=== PATIENT | female | born 1990 | race Caucasian/White ===

== ENCOUNTER 2016-06-20 09:39 | Emergency (ER) | payer OTHER ==
--- NOTE | 2016-06-20 10:14 | ERNOTE ---
Chest Pain/Cardiac HPI Date of Service: 06/20/16 Chief Complaint: Tachycardia Time Seen by Provider: 06/20/16 10:13 Source: patient, RN notes reviewed Exam Limitations: no limitations Immunizations: IMMUNIZATION HX Immunizations Up to Date Yes History of Influenza Vaccine No Hx Pneumococcal Vaccination No Allergies/Adverse Reactions: Allergies amoxicillin Allergy (Mild, Verified 06/20/16 09:55) Other Rash Home Medications: HOME MEDICATIONS Escitalopram Oxalate [Lexapro] 10 mg PO DAILY 06/20/16 [Last Taken 06/20/16] Pain Score #1 Pain Score: 0 Narrative: Hamida is a 26 year old female ambulatory to the ED for an episode of tachycardia and near syncope that occurred shortly after she got up this morning. She was getting laundry out of the dryer when she began having palpitations, lightheadedness and briefly lost her vision. She denies fall down. She reports drinking about 6 beers last evening and going to bed at 2230. She has been taking Lexapro for about 2 months, but is still experiencing occasional anxiety and is under a lot of stress. She has had episodes of tachycardia in the past. She reports the symptoms have not been as severe as this time. Date (Duration): 06/20/16 Time (Timing): 06:30 Timing: other - improved but still present Location: other - no chest pain Associated Symptoms: Present: dizziness, palpitations. Absent: headache, syncope, cough, shortness of breath, diaphoresis, fever/chills, nausea, vomiting , abdominal pain, weakness Review of Systems - Review of Systems Constitutional: Absent: recent illness, fever, chills EYE: Present: see HPI ENT: Absent: ear pain, nose congestion, sore throat Respiratory: Absent: shortness of breath, cough Cardiology: Present: palpitations. Absent: chest pain Gastrointestinal/Abdominal: Absent: diarrhea, abdominal pain, eating less, drinking less Genitourinary: Absent: other - possible Musculoskeletal: Present: no symptoms reported Skin: Present: no symptoms reported Neurological: Present: dizziness/light-headedness. Absent: headache, weakness, numbness, tingling Endocrine: Absent: intolerance to heat, unexplained weight loss Hematologic/Lymphatic: Present: no symptoms reported Psych: Present: anxiety. Absent: depressed - Patient's Past Medical History Patient History - Medical: Anxiety Patient History - Cardiac/Respiratory: No pertinent hx Patient History - Cancer: No Hx of Cancer Patient History - Surgical Procedures: Cholecystectomy, Tubal Ligation, T & A LMP (Calendar): 06/06/16 - Family History Mother Family History - Medical: No pertinent hx Family History - Cardiac/Respiratory: No pertinent hx Father Family History - Medical: No pertinent hx Family History - Cardiac/Respiratory: No pertinent hx - Social History Living Situations: home Smoking Status: Never smoker Have you smoked in the past 12 months: No Alcohol Use: occasionally Drug Use: none Physical Exam - Physical Exam General Appearance: Present: alert, anxious, thin, other - appropriately dressed and groomed Eye Exam: Normal inspection: bilateral, PERRL: bilateral Ears, Nose, Throat: Present: normal ENT inspection, hearing grossly normal, normal pharynx. Absent: abnormal TM (R), abnormal TM (L), nasal congestion, sinus pain/drainage Neck: Present: normal inspection, nontender, supple. Absent: thyromegaly Respiratory: Present: no respiratory distress, normal breath sounds, no accessory muscle use, lungs clear Cardiovascular/Chest: Present: no murmur, normal peripheral pulses, tachycardia Neurological Exam: Present: alert, oriented, normal mood/affect, no motor/ sensory deficits Skin Exam: Present: normal color, warm/dry ED Progress - Results and Orders Patient's Lab Results:: I have reviewed the patient's lab results. - Vital Signs Patient's Vital Signs:: I have reviewed the patient's vital signs. Vital Signs: Vital Signs 06/20/16 06/20/16 06/20/16 09:47 09:54 09:57 Temperature 36.5 C Pulse Rate 118 H 96 121 H Respiratory 16 Rate Blood Pressure 119/79 O2 Sat by Pulse 100 99 Oximetry 06/20/16 10:07 Temperature Pulse Rate 108 H Respiratory Rate Blood Pressure O2 Sat by Pulse Oximetry - EKG EKG: other - Sinus tachycardia EKG read: Reviewed by me - Progress/Reassessment Chief Complaint: Tachycardia Progress:: Improved Progress Note-Subjective: 06/20/16 11:38 Patient states she is feeling better with IV fluids. Discussed lab results. Symptoms likely d/t dehydration worsened by alcohol intake last evening and her ongoing anxiety. To rest and push fluids today. Discussed f/u with PCP if symptoms persist. Work excuse given for today. Departure - Departure Clinical Impression: Tachycardia, Dehydration, mild Disposition: Home self-care Condition: Good Instructions: Dehydration, Adult, [id number], Form - Excuse from Work, School , or Physical Activity Additional Instructions: Rest and push fluids today Follow up with your doctor if symptoms are persistent, or return to ED if worse.
[2016-06-20] MEDS ORDERED: NORMAL SALINE 1,000 ML IV ONE (10:22)
[2016-06-20 10:35] LABS: Hematocrit 39.3 % (37.0-47.0); Hemoglobin 13.1 gm/dL (12.5-16.0); Mean Corpuscular Hemoglobin 27.3 pg (27-31); Mean Corpuscular Hgb Conc 33.3 g/dl (32-36); Mean Platelet Volume 10.7 fl (6.0-9.5); Neutrophil # 15.7 K/mm3 (1.3-6.0); Neutrophil % 89.7 % (42-75.0); Platelet Count 245 K/mm3 (150-450); Red Blood Count 4.79 M/mm3 (4.2-5.4); Red Cell Distribution Width 15.5 % (11.5-14.0); White Blood Count 17.5 K/mm3 (4.0-10.5)
[2016-06-20 10:57] LABS: Albumin * 4.7 gm/dl (3.4-5.0); Anion Gap 15.9 mmol/L (6.8-13.8); BUN/Creatinine Ratio 20.7 (9.0-21.6); Bilirubin, Total 1.5 mg/dL (0.0-1.1); Ca. Corrected For Albumin 8.2 mg/dL (8.4-10.2); Calcium * 9.1 mg/dL (7.9-10.9); Carbon Dioxide 22.9 mmol/L (24-32.6); Potassium 3.8 mmol/L (3.4-4.6); T4 Free * 1.1 ng/dL (0.76-1.46); TSH * 1.755 uIU/mL (0.358-3.74); Total Protein 8.4 gm/dL (6.2-8.2)
[2016-06-20 11:55] VITALS: BP 134/71
== END 2016-06-20 11:56 | disposition home or self-care (01) ==
LOC: ER 09:39
DX: E86.0 Dehydration (principal); R00.0 Tachycardia, unspecified; Z90.49 Acquired absence of other specified parts of digestive tract; F41.1 Generalized anxiety disorder